=== PATIENT | male | born 1945 | race Caucasian/White ===

== ENCOUNTER 2023-03-02 11:40 | Observation (INO) ==
[2023-03-02] MEDS ORDERED: methylPREDNISolone SOD SUCC 125 mg 2 ML VIAL IV ONE (12:02)
[2023-03-02 12:48] LABS: ABS Lymphocytes 0.9 10^3/uL (1.0-4.8); ABS Monocytes 1.5 10^3/uL (0.0-1.1); ABS Neutrophils 14.1 10^3/uL (1.5-7.6); Eosinophil % 0.1 %; Hematocrit 38.3 % (38-53); Hemoglobin 12.7 g/dL (13.2-16.3); Lymphocyte % 5.5 %; Mean Corpuscular Hemoglobin 30.3 pg (27-33); Mean Corpuscular Hgb Conc 33.2 g/dL (31-36); Mean Corpuscular Volume 91.3 fL (80-97); Mean Platelet Volume 6.3 fL (7.5-11.2); Platelet Count 299 10^3/uL (150-450); Red Cell Distribution Width 14.4 % (12-17); White Blood Count 16.6 10^3/uL (3.6-10.2)
[2023-03-02] MEDS ORDERED: Albuterol/Ipratropium NEB.SOL (2.5/0.5 MG) 3 ML NEB.SOLN INH ONE (12:53)
[2023-03-02] MEDS ORDERED: Piperacillin/Tazobac 3.375 BAG 3.375 GM/100 ML BAG IV ONE (12:53)
[2023-03-02] MEDS ORDERED: Lactated Ringers 1000 ml BAG 1,000 ML IV ONE ×2 (12:54→15:26)
[2023-03-02 13:07] LABS: Albumin/Globulin Ratio 1.1 (1-3); C Reactive Protein 104.22 mg/L (<8.01); Creatinine, Serum 0.91 mg/dL (0.67-1.17); Globulin 3.8 g/dL (2-4); Magnesium 1.9 mg/dL (1.9-2.7); Total Bilirubin 0.5 mg/dL (0.2-1.0); Total Protein 7.8 g/dL (6.4-8.9); eGFR CKD-EPI 86.3 (>60)
[2023-03-02] MEDS ORDERED: Iohexol 350 (CONTRAST) 500 ML MDV IV ONE (13:23)
[2023-03-02 14:00] LABS: High Sensitivity Troponin 1 Hr 7 pg/mL (<20)
[2023-03-02] MEDS ORDERED: guaiFENesin 100 mg/5 ml LIQ unit dose cup PO PRN (15:41)
[2023-03-02] MEDS ORDERED: Azithromycin 500 mg/250 ml NS 500 MG/250 ML BAG IVPB SCH (16:00)
[2023-03-02] MEDS ORDERED: Fluticasone/Vilanterol MDI(NF) 200/25 MDI INH SCH (16:00)
[2023-03-02] MEDS: Enoxaparin 40 MG/0.4 ML SYR SUBCUT SCH (16:37)
[2023-03-02] MEDS ORDERED: Zosyn per Pharmacy NOTE FOLLOW UP SCH (17:00)
[2023-03-02 17:25] LABS: Urine Appearance Clear; Urine Bilirubin Negative (Negative); Urine Blood Negative (Negative); Urine Color Yellow; Urine Glucose Negative (Negative); Urine Ketones Negative (Negative); Urine Nitrite Negative (Negative); Urine Protein Negative (Negative); Urine Specific Gravity 1.058 (1.002-1.030); Urine Urobilinogen Negative (Negative)
[2023-03-02] MEDS ORDERED: ZOSYN 3.375 GM Q8H per EXTENDED INFUSION IV SCH (18:00)
[2023-03-02] MEDS ORDERED: cefTRIAXone 1 gm/50 mL D5W 1 GM/50 ML BAG IV SCH (18:00)
[2023-03-02] MEDS ORDERED: Remdesivir 100 mg Vial 200 MG in NS 0.9% 250 ml 210 ML IV ONE (20:00)
[2023-03-02 20:48] LABS: INR 1.3 (0.83-1.13)
[2023-03-02] MEDS ORDERED: methylPREDNISolone SOD SUCC 40 mg/ml 1 ml VIAL IV SCH (21:00)
[2023-03-02] MEDS ORDERED: NF:IPRATROPIUM BR (NF)0.06% NASAL 1 SPRAY BTL BOTH NARES SCH (21:00)
[2023-03-02] MEDS: Mometasone/Formoter 200/5 MDI INH SCH (23:58)
[2023-03-03] MEDS: ZOSYN 3.375 GM Q8H per EXTENDED INFUSION IV SCH ×3 (03:04→17:41)
[2023-03-03 07:06] LABS: ABS Basophils 0.1 10^3/uL (0.0-0.1); ABS Lymphocytes 1.1 10^3/uL (1.0-4.8); ABS Monocytes 0.6 10^3/uL (0.0-1.1); ABS Neutrophils 14.5 10^3/uL (1.5-7.6); Hematocrit 34.5 % (38-53); Hemoglobin 11.6 g/dL (13.2-16.3); Lymphocyte % 6.7 %; Mean Corpuscular Hemoglobin 30.5 pg (27-33); Mean Corpuscular Hgb Conc 33.8 g/dL (31-36); Mean Corpuscular Volume 90.4 fL (80-97); Mean Platelet Volume 6.2 fL (7.5-11.2); Platelet Count 246 10^3/uL (150-450); Red Blood Count 3.81 10^6/uL (4.06-5.63); Red Cell Distribution Width 14.4 % (12-17); White Blood Count 16.3 10^3/uL (3.6-10.2)
[2023-03-03 07:18] LABS: Calcium 8.5 mg/dL (8.6-10.3); Creatinine, Serum 0.64 mg/dL (0.67-1.17); Phosphorus 2.4 mg/dL (2.5-5.0); Potassium 4.1 mmol/L (3.5-5.0); eGFR CKD-EPI 96.9 (>60)
[2023-03-03] MEDS: SPIRIVA Respimat (tiotropium) 2.5 mcg/inh Inhaler INH SCH (08:26)
[2023-03-03] MEDS: Mometasone/Formoter 200/5 MDI INH SCH ×2 (08:27→19:15)
[2023-03-03] MEDS: Polyethylene Glycol 3350 17 GM PACKET PO SCH (11:03)
[2023-03-03] MEDS: Ure-Na 15 GM POWD.PACK PO SCH (11:53)
[2023-03-03] MEDS ORDERED: Calcium Carb (TUMS) 500 mg CHEW TAB PO PRN (14:12)
[2023-03-03] MEDS: Enoxaparin 40 MG/0.4 ML SYR SUBCUT SCH (15:19)
[2023-03-03] MEDS ORDERED: hydrALAZINE 20 mg/ml 1 ML Vial IV IV SLOW PU PRN (15:55)
[2023-03-03] MEDS ORDERED: hydrALAZINE 20 mg/ml 1 ML Vial IV IV SLOW PU ONE (16:45)
[2023-03-03] MEDS ORDERED: Remdesivir 100 mg Vial 100 MG in NS 0.9% 250 ml 230 ML IV SCH (21:00)
[2023-03-04] MEDS: ZOSYN 3.375 GM Q8H per EXTENDED INFUSION IV SCH ×2 (02:27→09:49)
[2023-03-04] MEDS: SPIRIVA Respimat (tiotropium) 2.5 mcg/inh Inhaler INH SCH (07:18)
[2023-03-04] MEDS: Mometasone/Formoter 200/5 MDI INH SCH (07:18)
[2023-03-04 07:28] LABS: ABS Basophils 0.1 10^3/uL (0.0-0.1); ABS Lymphocytes 2.2 10^3/uL (1.0-4.8); ABS Monocytes 1.2 10^3/uL (0.0-1.1); ABS Neutrophils 9.3 10^3/uL (1.5-7.6); ABS Nucleated RBC 0.01 10^3/ul; Eosinophil % 0.1 %; Hematocrit 34.8 % (38-53); Hemoglobin 11.6 g/dL (13.2-16.3); Lymphocyte % 17.2 %; Mean Corpuscular Hemoglobin 30.1 pg (27-33); Mean Corpuscular Hgb Conc 33.3 g/dL (31-36); Mean Corpuscular Volume 90.6 fL (80-97); Mean Platelet Volume 6.4 fL (7.5-11.2); Nucleated Red Blood Cells % 0.1 %/100WBC (0.0-0.8); Platelet Count 252 10^3/uL (150-450); Red Blood Count 3.84 10^6/uL (4.06-5.63); Red Cell Distribution Width 14.3 % (12-17); White Blood Count 12.7 10^3/uL (3.6-10.2)
[2023-03-04] MEDS ORDERED: Fluticasone NASAL SPRAY 50MCG 16 gm SPRAY BTL BOTH NARES SCH (09:30)
[2023-03-04 09:32] VITALS: BP 153/76
[2023-03-04] MEDS: Polyethylene Glycol 3350 17 GM PACKET PO SCH (09:34)
[2023-03-04] MEDS: Ure-Na 15 GM POWD.PACK PO SCH (09:37)
== END 2023-03-04 13:10 | disposition home or self-care (01) ==
LOC: ED 11:40 → EDHOLD 11:40 → MED 20:11
PROVIDERS: ADMIT Internal Medicine; ATTEND Internal Medicine

== ENCOUNTER 2023-05-23 13:06 | Inpatient (IN) ==
[2023-05-23 15:06] LABS: Hematocrit 38.6 % (38-53); Hemoglobin 12.9 g/dL (13.2-16.3); Mean Corpuscular Hemoglobin 30.3 pg (27-33); Mean Corpuscular Hgb Conc 33.5 g/dL (31-36); Mean Corpuscular Volume 90.5 fL (80-97); Platelet Count 206 10^3/uL (150-450); Red Blood Count 4.26 10^6/uL (4.06-5.63); Red Cell Distribution Width 15.5 % (12-17); White Blood Count 8.8 10^3/uL (3.6-10.2)
[2023-05-23 15:53] LABS: Albumin 3.8 g/dL (3.2-5.2); Albumin/Globulin Ratio 1.4 (1-3); C Reactive Protein 70.68 mg/L (<8.01); Calcium 9.1 mg/dL (8.6-10.3); Creatinine, Serum 0.86 mg/dL (0.67-1.17); Globulin 2.8 g/dL (2-4); Potassium 4.1 mmol/L (3.5-5.0); Total Bilirubin 0.3 mg/dL (0.2-1.0); Total Protein 6.6 g/dL (6.4-8.9); eGFR CKD-EPI 88.6 (>60)
[2023-05-23 16:29] LABS: ABS Basophils 0.1 10^3/uL (0.0-0.1); ABS Lymphocytes 0.8 10^3/uL (1.0-4.8); ABS Monocytes 1.9 10^3/uL (0.0-1.1); ABS Neutrophils 6.1 10^3/uL (1.5-7.6); Eosinophil % 0.3 %; Lymphocyte % 8.7 %
[2023-05-23] MEDS: prednisoLONE 1% OPHTH.SUSP 5 ML OPHTH.SUSP BOTH EYES SCH (22:01)
[2023-05-24] MEDS: Acetaminophen IV 1 GM/100ML 1,000 MG/100 ML BAG IV PRN (00:37)
[2023-05-24 07:34] LABS: Hematocrit 37.9 % (38-53); Hemoglobin 12.6 g/dL (13.2-16.3); Mean Corpuscular Hemoglobin 30.1 pg (27-33); Mean Corpuscular Hgb Conc 33.1 g/dL (31-36); Mean Corpuscular Volume 90.7 fL (80-97); Mean Platelet Volume 6.7 fL (7.5-11.2); Platelet Count 177 10^3/uL (150-450); Red Blood Count 4.18 10^6/uL (4.06-5.63); Red Cell Distribution Width 15.3 % (12-17)
[2023-05-24 07:39] LABS: Calcium 7.5 mg/dL (8.6-10.3); Creatinine, Serum 0.73 mg/dL (0.67-1.17); Potassium 3.6 mmol/L (3.5-5.0); eGFR CKD-EPI 93.1 (>60)
[2023-05-24] MEDS: SPIRIVA Respimat (tiotropium) 2.5 mcg/inh Inhaler INH SCH (11:12)
[2023-05-24] MEDS: cefTRIAXone 1 gm/50 mL D5W 1 GM/50 ML BAG IV SCH (18:18)
[2023-05-24] MEDS: Albuterol/Ipratropium NEB.SOL (2.5/0.5 MG) 3 ML NEB.SOLN INH SCH (19:23)
[2023-05-25 06:07] LABS: ABS Eosinophils 0.1 10^3/uL (0.0-0.5); ABS Lymphocytes 1.1 10^3/uL (1.0-4.8); ABS Monocytes 1.5 10^3/uL (0.0-1.1); ABS Neutrophils 4.8 10^3/uL (1.5-7.6); ABS Nucleated RBC 0.01 10^3/ul; Eosinophil % 1.2 %; Hematocrit 37.8 % (38-53); Lymphocyte % 14.1 %; Mean Corpuscular Hemoglobin 30.8 pg (27-33); Mean Corpuscular Hgb Conc 34.4 g/dL (31-36); Mean Corpuscular Volume 89.6 fL (80-97); Mean Platelet Volume 6.8 fL (7.5-11.2); Nucleated Red Blood Cells % 0.2 %/100WBC (0.0-0.8); Platelet Count 167 10^3/uL (150-450); Red Blood Count 4.22 10^6/uL (4.06-5.63); Red Cell Distribution Width 14.9 % (12-17); White Blood Count 7.5 10^3/uL (3.6-10.2)
[2023-05-25 07:09] LABS: Calcium 8.4 mg/dL (8.6-10.3); Creatinine, Serum 0.82 mg/dL (0.67-1.17); Potassium 3.9 mmol/L (3.5-5.0); eGFR CKD-EPI 89.9 (>60)
[2023-05-25] MEDS ORDERED: Albuterol/Ipratropium NEB.SOL (2.5/0.5 MG) 3 ML NEB.SOLN INH PRN (09:06)
[2023-05-25] MEDS: Albuterol 2.5mg/3 ml (0.083%) NEB.SOLN INH PRN (14:52)
[2023-05-26 05:59] LABS: Hematocrit 36.2 % (38-53); Hemoglobin 12.1 g/dL (13.2-16.3); Mean Corpuscular Hgb Conc 33.4 g/dL (31-36); Mean Corpuscular Volume 89.6 fL (80-97); Mean Platelet Volume 6.4 fL (7.5-11.2); Platelet Count 175 10^3/uL (150-450); Red Blood Count 4.04 10^6/uL (4.06-5.63); Red Cell Distribution Width 15.1 % (12-17); White Blood Count 5.7 10^3/uL (3.6-10.2)
[2023-05-26 06:16] LABS: Calcium 8.5 mg/dL (8.6-10.3); Creatinine, Serum 0.72 mg/dL (0.67-1.17); Potassium 3.9 mmol/L (3.5-5.0); eGFR CKD-EPI 93.5 (>60)
[2023-05-26 10:48] VITALS: BP 160/81
== END 2023-05-26 14:11 | disposition home or self-care (01) | DRG 190 ==
LOC: ED 13:06 → EDHOLD 13:06 → SUATTDRO 18:48 → MED 05-24 15:55
PROVIDERS: ADMIT Internal Medicine; ATTEND Student in an Organized Health Care Education/Training Program